=== PATIENT | female | born 2000 | race Caucasian/White ===

== ENCOUNTER → 2025-05-17 12:32 | Outpatient (REF) | payer BC, SELFPAY ==
[2025-05-17 13:48] LABS: ALT (SGPT) 168 U/L (0-35); AST (SGOT) 364 U/L (14-36); Albumin 4.4 g/dl (3.5-5.0); Alkaline Phosphatase 141 U/L (38-126); Blood Urea Nitrogen 8 mg/dl (7-17); Calcium 9.8 mg/dl (8.4-10.2); Carbon Dioxide 35 mmol/L (22-30); Chloride 89 mmol/L (98-107); Glucose 101 mg/dl (70-99); Potassium 3.1 mmol/L (3.5-5.1); Sodium 132 mmol/L (135-145); Total Bilirubin 1.7 mg/dl (0.2-1.3); Total Protein 7.8 g/dl (6.3-8.2); eGFR > 60.00
== END ==
LOC: REG 12:32
PROVIDERS: ATTENDING PHYSICIAN Physician Assistant
DX: E87.6 Hypokalemia (principal); R79.89 Other specified abnormal findings of blood chemistry
CPT/HCPCS: 36415; 80053